=== PATIENT | female | born 1950 | race Caucasian/White ===

== ENCOUNTER 2018-10-05 16:38 | Day surgery (SDC) | payer OTHER ==
[~2018-10-05] VITALS: Ht 172.7 cm; Wt 136.1 kg
[2018-10-05] MEDS ORDERED: FOLIC ACID1 MG (16:49)
[2018-10-05] MEDS ORDERED: MILLIPRED DP5 MG (16:50)
[2018-10-07] MEDS ORDERED: XARELTO10 MG PO (10:55)
[2018-10-07] MEDS ORDERED: PERCOCET 5-3251 EACH PO (10:55)
== END 2018-10-07 08:00 | disposition home or self-care (01) ==
LOC: ER 16:38 → CIR.AMB 10-06 07:00 → SURH 10-06 10:54 → ER 10-06 10:54 → CIR.AMB 10-06 17:00 → EDSTATUS 10-07 07:00 → CIR.AMB 10-07 08:00 → SURH 10-07 16:34
DX: T84.021A Dislocation of internal left hip prosthesis, initial encounter (principal); I10 Essential (primary) hypertension; M06.852 Other specified rheumatoid arthritis, left hip; J45.998 Other asthma; M81.0 Age-related osteoporosis without current pathological fracture